=== PATIENT | female | born 1960 | race Caucasian/White ===

== ENCOUNTER 2016-10-27 13:10 | Day surgery (SDC) | payer MEDICARE, OTHER ==
[~2016-10-27] VITALS: Ht 157.5 cm; Wt 69.4 kg
[~2016-10-27 13:10] MED LIST: 0.9% Sodium Chloride 1,000 ML IV SCH; BIOT10002 PO; CHOL200025 PO; ESTR10TA VG; MULT-1018 PO; Sodium Biphos-Phos 133 mL Enema RECTAL PRN; Sodium Chloride LOK Flush 10 mL Syringe IV PRN; ZOV800 PO; fentaNYL-PF 50 mCg/mL 2 mL Inj IVPUSH PRN
[2016-10-27] MEDS ORDERED: Propofol 10,000 mCg/mL 20 mL Inj ONE (13:11)
[2016-10-27 13:38] VITALS: BP 106/64; PULSE 81; RESP 14; O2SAT 99
[2016-10-27 15:11] VITALS: BP 104/62; PULSE 87; RESP 13; O2SAT 94
[2016-10-27] MEDS ORDERED: Lactated Ringer's 1,000 ML IV SCH (15:28)
--- NOTE | 2016-10-27 15:28 | PCM.ANEP1 ---
Post Anesthesia PACU Phase 1 Assessment Vital Signs Vital Signs Date Time Temp Pulse Resp B/P Pulse Ox O2 Delivery O2 Flow Rate FiO2 10/27/16 15:11 87 13 104/62 94 Room Air 10/27/16 13:38 81 14 106/64 99 Room Air Anesthetic Administered: MAC Level of Alertness: Sleepy, easy to arouse HERRING's with Equal Strength: No Pain: No Nausea or Vomiting: No CV Function & Hydration Stable: Yes Airway Device: Lungs: Normal Air Movement PACU Phase 2 Assessment Complications: No Follow up Care: No (Was asked to provide rescue sedation) Patient Instructions Provided: N/A Cosmo Márquez MD October 27, 2016 15:28
[2016-10-27] MEDS ORDERED: Ondansetron 2 mg/mL 2 mL Inj IVPUSH PRN (15:30)
--- NOTE | 2016-10-27 15:30 | ENDO ---
[address] [id number] ENDOSCOPY PROCEDURE PATIENT: CHEYANNE GREGG : 1960 MR#: [id number] ADMIT: 10/27/2016 JOB ID: [id number] DATE: 10/27/2016 PREPROCEDURE DIAGNOSIS: Screening for colon cancer. POSTPROCEDURE DIAGNOSIS: Normal colonoscopy. Difficulty with anesthesia. ENDOSCOPIST: Dr. Wan Awan. MEDICATIONS: 1. Versed 9 mg. 2. Fentanyl 200 mcg, followed by propofol assisted anesthesia by Dr. Brennen Márquez. INDICATIONS: The patient is a 56-year-old woman who was referred for screening colonoscopy. She had never had prior colonoscopy. She has had unintentional weight loss of 25 pounds, although she has been under a great degree of stress, undergoing a divorce. She had no abdominal symptoms, no unplanned weight loss, no blood in her stool. After discussion of risks and benefits, she agreed to proceed with colonoscopy. FINDINGS: The colon was very torturous and intubation of the cecum was difficult but ultimately achieved. She was very uncomfortable despite maximal sedation and propofol assisted anesthesia was utilized to complete the procedure. DESCRIPTION OF PROCEDURE: Procedural sedation was achieved. After digital rectal examination, the PCF H 180 AL colonoscope was inserted and passed under visualization until ultimately the cecum was intubated, the ileocecal valve visualized and the appendiceal orifice, and both were photo documented. The colon was very tortuous, and there was some tight angulation in the pelvis, presumably from prior pelvic surgery. Ultimately with propofol assisted anesthesia, the procedure was able to be completed. The scope was then withdrawn and carefully retroflexed in the rectum. No mucosal abnormalities were identified. There was no evidence of significant hemorrhoidal disease. The scope was withdrawn and the procedure terminated. She tolerated the procedure well. RECOMMENDATIONS: For screening purposes, next colonoscopy should be in 10 years, and should be with anesthesia.
== END 2016-10-27 23:59 | disposition home or self-care (01) ==
LOC: END 13:10
PROVIDERS: ATTEND Student in an Organized Health Care Education/Training Program
DX: Z12.11 Encounter for screening for malignant neoplasm of colon (principal); R63.4 Abnormal weight loss; Z63.5 Disruption of family by separation and divorce; C90.30 Solitary plasmacytoma not having achieved remission; D68.61 Antiphospholipid syndrome
CPT/HCPCS: 99153; G0121; G0500; J7030